=== PATIENT | female | born 1995 | race Two or more races ===

== ENCOUNTER 2020-05-06 00:58 | Inpatient (IN) | payer OTHER ==
[~2020-05-06] VITALS: Ht 165.1 cm; Wt 76.4 kg
--- NOTE | 2020-05-06 01:14 | NUR ---
PT AMBULATORY TO ROOM, STEADY GAIT.
--- NOTE | 2020-05-06 01:46 | NUR ---
ERP TO BEDSIDE. PT CONNECTED TO BP, CARDIAC, AND O2 MONITORS. POSITIONED TO COMFORT. CALL LIGHT IN REACH. BEDRAILS UP X2. VISITOR AT BEDSIDE.
[2020-05-06 02:05] LABS: BASOPHILS # (AUTO) 0.14 x10^3/uL (0-0.1); BASOPHILS % (AUTO) 1 % (0-1); EOSINOPHILS # (AUTO) 0.11 x10^3/uL (0-0.4); EOSINOPHILS % (AUTO) 1 % (1-7); LYMPHOCYTES # (AUTO) 3.79 x10^3/uL (1-3.4); LYMPHOCYTES % (AUTO) 29 % (22-44); MD NO; MEAN CORPUSCULAR HEMOGLOBIN 28.7 pg (27.0-34.8); MEAN CORPUSCULAR HGB CONC 33.2 g/dL (32.4-35.8); MEAN CORPUSCULAR VOLUME 86.5 fL (80-100); MEAN PLATELET VOLUME 7.6 fL (7.4-10.4); MONOCYTES # (AUTO) 0.65 x10^3/uL (0.2-0.8); MONOCYTES % (AUTO) 5 % (2-9); NEUTROPHILS # (AUTO) 8.44 x10^3/uL (1.8-6.8); NEUTROPHILS % (AUTO) 64 % (42-75); PLATELET COUNT 226 x10^3/uL (130-400); RED BLOOD COUNT 4.74 x10^6/uL (3.82-5.3)
[2020-05-06 02:16] LABS: ALBUMIN 3.6 g/dL (3.4-5.0); ANION GAP 9 mmol/L (5-15); CALCIUM 9.2 mg/dL (8.5-10.1); CHLORIDE 108 mmol/L (98-107); CREATININE 0.85 mg/dL (0.55-1.02)
[2020-05-06 02:20] LABS: TROPONIN I < 0.015 ng/mL (0.000-0.045)
--- NOTE | 2020-05-06 02:32 | NUR ---
PT TO IMAGING.
[2020-05-06] MEDS ORDERED: ONDANSETRON 2MG/ML, 2ML ONE (03:27)
[2020-05-06] MEDS ORDERED: MORPHINE SULFATE 4 MG/ML, 1ML ONE (03:27)
[2020-05-06] MEDS ORDERED: ONDANSETRON 2MG/ML, 2ML IVPush ONE (03:30)
[2020-05-06] MEDS ORDERED: MORPHINE SULFATE 4 MG/ML, 1ML IVPush PRN ×2 (03:30→15:00)
[2020-05-06] MEDS ORDERED: OMNIPAQUE 350 MG/ML, 100ML BOTTLE ONE (03:41)
--- NOTE | 2020-05-06 03:48 | NUR ---
PT AMBULATORY TO BATHROOM WITH STEADY GAIT.
[2020-05-06] MEDS ORDERED: HEPARIN 5,000 UNITS/ML, 1ML IV ONE (04:00)
--- NOTE | 2020-05-06 04:08 | NUR ---
PT TO IMAGING.
[2020-05-06] MEDS ORDERED: HEPARIN 5,000 UNITS/ML, 1ML ONE (04:21)
[2020-05-06] MEDS ORDERED: HEPARIN 25,000 UNITS/250ML PMX 250 ML ONE (04:21)
[2020-05-06] MEDS ORDERED: GUAIFENESIN/DM 200-20MG, 10ML UDC PO PRN (04:30)
[2020-05-06] MEDS ORDERED: ONDANSETRON 2MG/ML, 2ML IVPush PRN (04:30)
[2020-05-06] MEDS ORDERED: CYCLOBENZAPRINE 10 MG TABLET PO PRN (04:30)
[2020-05-06] MEDS ORDERED: ACETAMINOPHEN 325 MG TABLET PO PRN (04:30)
[2020-05-06] MEDS ORDERED: DOCUSATE 100 MG CAPSULE PO PRN (04:30)
[2020-05-06] MEDS: HEPARIN 25,000 UNITS/250ML PMX 250 ML IV PRN (04:51)
--- NOTE | 2020-05-06 05:07 | NUR ---
REPORT GIVEN TO ANGELA ROSALES RN.
[2020-05-06 05:33] VITALS: BP 117/74
[2020-05-06] MEDS ORDERED: LEVO1TAB66 PO (05:57)
[2020-05-06] MEDS: KETOROLAC 30 MG/1 ML IV PRN ×2 (06:24→12:18)
[2020-05-06 08:14] VITALS: BP 102/68
[2020-05-06] MEDS: HEPARIN 5,000 UNITS/ML, 1ML IV PRN ×2 (11:56→19:31)
[2020-05-06 13:43] VITALS: BP 111/62
[2020-05-06] MEDS ORDERED: HYDROcodone/APAP 5/325 TABLET PO PRN (15:00)
[2020-05-06 19:36] VITALS: BP 109/72
[2020-05-07 01:12] VITALS: BP 113/72
[2020-05-07] MEDS: KETOROLAC 30 MG/1 ML IV PRN ×2 (01:36→07:48)
[2020-05-07 01:49] LABS: BASOPHILS # (AUTO) 0.04 x10^3/uL (0-0.1); BASOPHILS % (AUTO) 1 % (0-1); EOSINOPHILS # (AUTO) 0.09 x10^3/uL (0-0.4); EOSINOPHILS % (AUTO) 1 % (1-7); LYMPHOCYTES # (AUTO) 3.75 x10^3/uL (1-3.4); LYMPHOCYTES % (AUTO) 48 % (22-44); MD NO; MEAN CORPUSCULAR HEMOGLOBIN 28.3 pg (27.0-34.8); MEAN CORPUSCULAR HGB CONC 32.3 g/dL (32.4-35.8); MEAN CORPUSCULAR VOLUME 87.9 fL (80-100); MEAN PLATELET VOLUME 7.6 fL (7.4-10.4); MONOCYTES # (AUTO) 0.39 x10^3/uL (0.2-0.8); MONOCYTES % (AUTO) 5 % (2-9); NEUTROPHILS # (AUTO) 3.47 x10^3/uL (1.8-6.8); NEUTROPHILS % (AUTO) 45 % (42-75); PLATELET COUNT 213 x10^3/uL (130-400); RED BLOOD COUNT 4.24 x10^6/uL (3.82-5.3)
[2020-05-07 01:57] LABS: ANION GAP 8 mmol/L (5-15); CALCIUM 8.7 mg/dL (8.5-10.1); CHLORIDE 109 mmol/L (98-107)
[2020-05-07] MEDS: HEPARIN 5,000 UNITS/ML, 1ML IV PRN ×2 (02:11→15:16)
[2020-05-07] MEDS: HEPARIN 25,000 UNITS/250ML PMX 250 ML IV PRN (02:12)
[2020-05-07 07:46] VITALS: BP 137/65
[2020-05-07 13:52] VITALS: BP 120/76
[2020-05-07] MEDS: ENOXAPARIN 80 MG/0.8 ML SQ SCH (16:45)
[2020-05-07 19:25] VITALS: BP 130/83
[2020-05-08 00:53] VITALS: BP 123/74
[2020-05-08] MEDS: ENOXAPARIN 80 MG/0.8 ML SQ SCH ×2 (04:13→16:27)
[2020-05-08 06:05] LABS: BASOPHILS # (AUTO) 0.04 x10^3/uL (0-0.1); BASOPHILS % (AUTO) 1 % (0-1); EOSINOPHILS # (AUTO) 0.08 x10^3/uL (0-0.4); EOSINOPHILS % (AUTO) 1 % (1-7); LYMPHOCYTES # (AUTO) 3.27 x10^3/uL (1-3.4); LYMPHOCYTES % (AUTO) 45 % (22-44); MD NO; MEAN CORPUSCULAR HEMOGLOBIN 28.4 pg (27.0-34.8); MEAN CORPUSCULAR HGB CONC 32.6 g/dL (32.4-35.8); MEAN CORPUSCULAR VOLUME 87.2 fL (80-100); MEAN PLATELET VOLUME 8.2 fL (7.4-10.4); MONOCYTES # (AUTO) 0.32 x10^3/uL (0.2-0.8); MONOCYTES % (AUTO) 4 % (2-9); NEUTROPHILS # (AUTO) 3.62 x10^3/uL (1.8-6.8); NEUTROPHILS % (AUTO) 49 % (42-75); PLATELET COUNT 223 x10^3/uL (130-400); RED BLOOD COUNT 4.62 x10^6/uL (3.82-5.3); RED CELL DISTRIBUTION WIDTH 13.2 % (9.6-15.2)
[2020-05-08 07:53] VITALS: BP 108/70
[2020-05-08 13:38] VITALS: BP 119/75
[2020-05-08] MEDS ORDERED: APIX5TAB PO (15:28)
[2020-05-08 19:05] VITALS: BP 133/81
[2020-05-09 01:10] VITALS: BP 117/80
[2020-05-09] MEDS: ENOXAPARIN 80 MG/0.8 ML SQ SCH ×2 (04:07→16:21)
[2020-05-09 05:10] LABS: BASOPHILS # (AUTO) 0.01 x10^3/uL (0-0.1); BASOPHILS % (AUTO) 0 % (0-1); EOSINOPHILS # (AUTO) 0.12 x10^3/uL (0-0.4); EOSINOPHILS % (AUTO) 2 % (1-7); LYMPHOCYTES # (AUTO) 3.55 x10^3/uL (1-3.4); LYMPHOCYTES % (AUTO) 50 % (22-44); MD NO; MEAN CORPUSCULAR HEMOGLOBIN 28.4 pg (27.0-34.8); MEAN CORPUSCULAR VOLUME 86.1 fL (80-100); MEAN PLATELET VOLUME 7.6 fL (7.4-10.4); MONOCYTES # (AUTO) 0.35 x10^3/uL (0.2-0.8); MONOCYTES % (AUTO) 5 % (2-9); NEUTROPHILS # (AUTO) 3.04 x10^3/uL (1.8-6.8); NEUTROPHILS % (AUTO) 43 % (42-75); PLATELET COUNT 267 x10^3/uL (130-400); RED BLOOD COUNT 4.76 x10^6/uL (3.82-5.3); RED CELL DISTRIBUTION WIDTH 13.1 % (9.6-15.2)
[2020-05-09 09:30] VITALS: BP 116/79
[2020-05-09 14:29] VITALS: BP 119/80
== END 2020-05-09 17:07 | disposition home or self-care (01) | DRG 176 ==
LOC: ED 01:28 → EDIP 04:19 → 3N 05:19
PROVIDERS: ADMIT Hospitalist; ATTEND Internal Medicine
DX: I26.99 Other pulmonary embolism without acute cor pulmonale (principal); D72.829 Elevated white blood cell count, unspecified; Z83.3 Family history of diabetes mellitus
CPT/HCPCS: 36415; 71275; 80048; 82040; 83880; 84145; 84484; 84703; 85025; 85210; 85300; 85301; 85302; 85303; 85305; 85306; 85520; 85613; 85670; 85705; 85732; 87040; 93005; 93970; 96374; 96375; G0378; J1644; J1650; J1885; J2405; Q9967; J2270

== ENCOUNTER → 2020-08-30 | Outpatient (CLI) | payer BC ==
[~2020-08-30] MED LIST: APIX5TAB PO; LEVO1TAB66 PO; OMNIPAQUE 350 MG/ML, 100ML BOTTLE ONE
== END | disposition home or self-care (01) ==
LOC: CFH 10:35
PROVIDERS: ATTEND Internal Medicine
DX: I26.99 Other pulmonary embolism without acute cor pulmonale (principal)
CPT/HCPCS: 71275; Q9967